=== PATIENT | male | born 1940 | race Caucasian/White ===

== ENCOUNTER 2021-01-20 19:57 | Emergency (ER) | payer MEDICARE, SELFPAY ==
--- NOTE | ~2021-01-20 | CT_ITS ---
EXAMINATION: CT brain wo con DATE: 01/20/2021 20:53 INDICATION: Syncope TECHNIQUE: Computed tomography (CT) of the head was performed without intravenous contrast. Sagittal and coronal reconstructions were performed. The mA was adjusted according to patient size. Iterative reconstruction technique was employed. The dose-length product was 605.33 mGy-cm. COMPARISON: None FINDINGS: No acute intracranial hemorrhage, acute infarction or abnormal extra axial fluid collection. Small ol d lacunar infarcts at the left lentiform nucleus and at the anterior limb of the right internal capsu le. There is mild scattered white matter hypoattenuation consistent with chronic small vessel ischemi c disease. Symmetric prominence of the sulci and ventricles consistent with moderate age-appropriate diffuse cerebral volume loss. No mass/mass effect. Changes of right intraocular lens replacement. The orbits, paranasal sinuses and mastoid air cells are normal. Intracranial calcified cerebral atherosc lerosis is noted. IMPRESSION: 1. No acute intracranial process. 2. 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 3. Age-related changes including moderate diffuse volume loss and mild scattered white matter hypoatt enuation consistent with chronic small vessel ischemic disease. Reviewed, dictated and finalized at location A. IMPRESSION: 1. No acute intracranial process. 2. 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 3. Age-related changes including moderate diffuse volume loss and mild scattere d white matter hypoattenuation consistent with chronic small vessel ischemic di sease.
--- NOTE | ~2021-01-20 | XR_ITS ---
EXAMINATION: XR chest 1V DATE: 01/20/2021 21:06 INDICATION: Syncope. Hypertension. TECHNIQUE: frontal view of the chest was obtained. COMPARISON: None FINDINGS: Small lung volumes. No focal airspace opacities, pulmonary edema, pleural effusion or pneumothorax. C ardiomegaly. Mediastinal lipomatosis. The thoracic trachea appears deviated towards the right with in creased distance between is left wall and the lateral margin of the aortic arch suggesting the possib ility of aneurysmal dilation. Severe thoracic spondylosis. IMPRESSION: 1. Cardiomegaly. 2. Small lung volumes without evident lung disease. 3. Suggestion of possible aneurysmal dilation of the aortic arch. Reviewed, dictated and finalized at location A.
--- NOTE | ~2021-01-20 | CT_ITS ---
EXAMINATION: CTA chest DATE: 01/20/2021 22:21 INDICATION: Aortic aneurysm TECHNIQUE: Computed tomographic angiography (CTA) of the chest was performed without and with 100 mL Omnipaque-350 intravenous contrast. Volume-rendered 3D-reconstructions of the aorta and large arterie s were constructed by the technologist on a separate workstation. Automated exposure control and iter ative reconstruction technique were employed. The dose-length product was 808 mGy-cm. COMPARISON: None. FINDINGS: Mild emphysema. Mild atelectasis in the dependent right lower lobe as well as along the basilar right middle and lower lobes along the elevated right hemidiaphragm. Additional mild atelectasis in the li ngula along the apex of the left hemidiaphragm. No pneumonia, pulmonary edema, pleural effusion or pn eumothorax. Mild cardiomegaly with left atrial enlargement. Atherosclerotic coronary artery calcifica tion. No pericardial effusion. Thoracic aorta is within normal limits for age measuring 3.9 cm in max imal diameter at the ascending thoracic aorta. No dissection. The appearance on prior chest radiograp h appears to result from slight rightward rotation of the patient which shifts the trachea to the rig ht and exaggerates the width of the mediastinum and aortic arch. There is however enlargement of the central pulmonary arteries consistent with pulmonary arterial hypertension. No pathologically enlarge d thoracic lymphadenopathy. Small sliding-type hiatal hernia. Severe thoracic spondylosis. IMPRESSION: 1. Mildly ectatic ascending thoracic aorta measuring up to 3.9 cm. Artifactual suggestion of aneurysm al dilation of the arch appears to result from slight rightward rotation of the patient on the plain radiographs. 2. Bibasilar atelectasis. No acute cardiopulmonary disease. 3. Mild cardiomegaly with left atrial enlargement. 4. Enlargement of the central pulmonary arteries consistent with pulmonary arterial hypertension. 5. Mild emphysema. 6. Small sliding-type hiatal hernia. Reviewed, dictated and finalized at location A. IMPRESSION: 1. Mildly ectatic ascending thoracic aorta measuring up to 3.9 cm. Artifactual suggestion of aneurysmal dilation of the arch appears to result from slight rig htward rotation of the patient on the plain radiographs. 2. Bibasilar atelectasis. No acute cardiopulmonary disease. 3. Mild cardiomegaly with left atrial enlargement. 4. Enlargement of the central pulmonary arteries consistent with pulmonary chas rial hypertension. 5. Mild emphysema. 6. Small sliding-type hiatal hernia.
[2021-01-20 20:01] VITALS: BP 167/88; PULSE 61; RESP 20; TEMP 36.6; O2SAT 94
--- NOTE | 2021-01-20 20:05 | ECG_ITS ---
Measurements Intervals [place] Rate: 57 P: 90 WI: 178 QRS: 11 QRSD: 112 T: 160 QT: 438 QTc: 429 Interpretive Statements SINUS BRADYCARDIA INTRAVENTRICULAR CONDUCTION DELAY NONSPECIFIC ST & T-WAVE ABNORMALITY- DIFFUSE LEADS BORDERLINE ECG Electronically Signed On 01-20-2021 20:33:59 CDT by Sharath Rogers D.O.
[2021-01-20 20:47] LABS: Basophils Percent Auto 0.4 % (0.2-1.2); Eosinophils Absolute Auto 0.1 K/mm3 (0-0.3); Eosinophils Percent Auto 1.5 % (0-4.4); Hematocrit 50.5 % (42.0-52.0); Hemoglobin 16.9 g/dL (14.0-18.0); Immature Granulocyte Absolute 0.04 K/mm3 (0.00-0.031); Immature Granulocyte Percent A 0.4 % (0-0.5); Lymphocytes Absolute Auto 0.65 K/mm3 (0.9-3.2); Mean Corpuscular HGB Conc 33.5 g/dl (32-36); Mean Corpuscular Hemoglobin 30.6 pg (26-34); Mean Corpuscular Volume 91.3 fl (80-100); Mean Platelet Volume 10.1 fl (7.4-10.4); Monocytes Absolute Auto 0.5 K/mm3 (0.1-0.6); Monocytes Percent Auto 4.9 % (2.6-8.5); Neutrophils Absolute Auto 7.9 K/mm3 (1.3-6.7); Neutrophils Percent Auto 85.8 % (45.5-73.1); Platelet Count Result 201 k/mm3 (150-375); Red Blood Count 5.53 M/mm3 (4.6-6.20); Red Cell Distribution Width 13.2 % (11.5-14.5); White Blood Count 9.2 K/mm3 (4.5-10.0)
[2021-01-20 21:10] LABS: Anion Gap 14 mmol/L (8-16); Blood Urea Nitrogen 23 mg/dL (9-20); Calcium 9.6 mg/dL (8.4-10.2); Carbon Dioxide 19 mmol/L (22-30); Chloride 107 mmol/L (98-107); Estimated CRCL calculation 40 ml/min; Estimated Glomerular Filt Rate 45; Glucose 105 mg/dL (75-110); Potassium 4.2 mmol/L (3.4-5.0); Sodium 140 mmol/L (137-145)
--- NOTE | 2021-01-20 21:20 | ED.GENADULT ---
HPI - General Adult General Chief complaint: Syncope Stated complaint: syncopal x 2 min Time Seen by Provider: 01/20/21 20:31 History of Present Illness HPI narrative: Patient 80-year-old gentleman who presents the emergency department with chief complaint of syncopal episode. Patient reports he was sitting in a chair had not eaten all day and started to feel lightheaded and felt a chute puller his entire body. Patient states that his family noticed that he became unresponsive lasted less than 2 minutes had no shaking or loss of bowel or bladder function and had no focal neurological deficit afterwards the patient reports he is traveling from [place]. Review of Systems Review of Systems: Narrative: A 10 system review of systems was completed on the patient and is negative except for what is stated in the HPI. Nursing and ancillary documentation was reviewed. Exam Narrative: Exam Narrative: GENERAL: Well-appearing, well-nourished, and in no acute distress. HEAD: Normocephalic, atraumatic. EYES: PERRLA and EOMI. ENT: Nares clear, no rhinorrhea or epistaxis. Mucous membranes moist. NECK: Supple. CHEST: Clear to auscultation. No respiratory distress. HEART: Regular rate and rhythm. No murmur heard. Normal peripheral pulses. ABDOMEN: Soft, nontender, nondistended, normal active bowel sounds. EXTREMITIES: Normal range of motion. No edema. SKIN: Warm, dry, no rash. NEURO: No focal deficits. Alert and oriented x3. PSYCH: Normal mood and affect. Course Vital Signs Vital signs: Vital Signs Temperature 36.6 C 01/20/21 20:01 Pulse Rate 61 01/20/21 20:01 Respiratory Rate 20 01/20/21 20:01 Blood Pressure 167/88 H 01/20/21 20:01 Pulse Oximetry 94 01/20/21 20:01 Temperature 36.6 C 01/20/21 20:01 Pulse Rate 74 01/20/21 22:39 Respiratory Rate 22 H 01/20/21 22:39 Blood Pressure 144/73 H 01/20/21 22:39 Pulse Oximetry 93 01/20/21 22:39 Medical Decision Making Vital Signs Vital Signs: Vital Signs Temperature 36.6 C 01/20/21 20:01 Pulse Rate 61 01/20/21 20:01 Respiratory Rate 20 01/20/21 20:01 Blood Pressure 167/88 H 01/20/21 20:01 Pulse Oximetry 94 01/20/21 20:01 Temperature 36.6 C 01/20/21 20:01 Pulse Rate 74 01/20/21 22:39 Respiratory Rate 22 H 01/20/21 22:39 Blood Pressure 144/73 H 01/20/21 22:39 Pulse Oximetry 93 01/20/21 22:39 Lab Data Result diagrams: 01/20/21 20:39 01/20/21 20:39 Labs: Lab Results 01/20/21 01/20/21 01/20/21 Range/Units 20:39 20:39 20:39 WBC 9.2 (4.5-10.0) K/mm3 RBC 5.53 (4.6-6.20) M/mm3 Hgb 16.9 (14.0-18.0) g/dL Hct 50.5 (42.0-52.0) % MCV 91.3 (80-100) fl MCH 30.6 (26-34) pg MCHC 33.5 (32-36) g/dl RDW 13.2 (11.5-14.5) % Plt Count 201 (150-375) k/mm3 MPV 10.1 (7.4-10.4) fl Immature Gran % (Auto) 0.4 (0-0.5) % Neut % (Auto) 85.8 H (45.5-73.1) % Lymph % (Auto) 7.0 L (18.3-44.2) % [place] % (Auto) 4.9 (2.6-8.5) % Eos % (Auto) 1.5 (0-4.4) % Baso % (Auto) 0.4 (0.2-1.2) % Lymph # (Auto) 0.65 L (0.9-3.2) K/mm3 [place] # (Auto) 0.5 (0.1-0.6) K/mm3 Eos # (Auto) 0.1 (0-0.3) K/mm3 Baso # (Auto) 0.0 (0.0-0.1) K/mm3 Abs Immat Gran (auto) 0.04 H (0.00-0.031) K/mm3 Absolute Neuts (auto) 7.9 H (1.3-6.7) K/mm3 Absolute Nucleated RBC 0.0 (0.0-0.012) K/mm3 Nucleated RBC % 0.0 (0.0-0.2) % Sodium 140 (137-145) mmol/L Potassium 4.2 (3.4-5.0) mmol/L Chloride 107 (98-107) mmol/L Carbon Dioxide 19 L (22-30) mmol/L Anion Gap 14 (8-16) mmol/L BUN 23 H (9-20) mg/dL Creatinine 1.50 H (0.7-1.3) mg/dL Estim Creat Clear Calc 40 ml/min Estimated GFR 45 L (59 - ) Glucose 105 (75-110) mg/dL Lactic Acid (0.7-2.1) mmol/L Calcium 9.6 (8.4-10.2) mg/dL Magnesium (1.6-2.3) mg/dL Total Bilirubin (0.2-1.3) mg/dL Direct Bilirubin (0-0.3) mg/dL AST
[2021-01-20 21:22] LABS: Troponin I < 0.012 ng/mL (0.000-0.034)
[2021-01-20 21:33] LABS: Lactic Acid Reflex 1.6 mmol/L (0.7-2.1)
[2021-01-20 21:36] LABS: Alanine Aminotransferase 12 U/L (4-50); Albumin Level 4.2 g/dL (3.5-5.1); Alkaline Phosphatase 81 U/L (38-126); Aspartate Amino Transferase 20 U/L (17-59); Bilirubin,Total 0.9 mg/dL (0.2-1.3); Magnesium 2.1 mg/dL (1.6-2.3)
[2021-01-20 22:39] VITALS: BP 144/73; PULSE 74; RESP 22; O2SAT 93
[2021-01-20] MEDS: SODIUM CHLORIDE 0.9% IV 1,000 ML 999 ML IV CONT (22:41)
[2021-01-20 23:45] VITALS: BP 149/82; PULSE 73; RESP 20; O2SAT 97
--- NOTE | 2021-02-07 08:35 | PC.NURSE ---
LATE ENTRY This note is being entered to document information to the patient's record. The following information was omitted on [01/20/21], by [Patel Mckeon RN]. NS stop time is 2330.
== END 2021-01-20 23:48 | disposition home or self-care (01) ==
PROVIDERS: Emergency Provider Emergency Medicine; PCP Internal Medicine
DX: R55 Syncope and collapse (principal); R00.1 Bradycardia, unspecified; I45.9 Conduction disorder, unspecified; R94.31 Abnormal electrocardiogram [ECG] [EKG]
CPT/HCPCS: 36415; 70450; 71045; 71275; 80048; 80076; 83605; 83735; 84484; 85025; 93005; 96360; 99284; J7030; Q9967